=== PATIENT | female | born 1940 | race Caucasian/White ===

== ENCOUNTER 2020-04-01 11:47 | Inpatient (IN) | payer MEDICARE ==
[~2020-04-01] VITALS: Ht 157.5 cm; Wt 56.1 kg
--- NOTE | ~2020-04-01 | EMS ---
[place] [address] EMS Patient Care Report Name: DEREK BERNSTEIN Room: [facility]#: [id number] Admission: 04/01/20 Attend Phys: Discharge: Date of : 44 Report #: [id number] THIS REPORT FOR: //name// Report Transmitted: 04/01/2020 12:11 EMS Care Summary [facility] Incident [id number] @ 04/01/2020 10:30 Incident Location [address] [place] [address] Patient DEREK BERNSTEIN Female, 80 Years 1940 Patient Address [address] [place] [address] Patient History Stroke/CVA,Hyperlipidemia,Lupus, Patient Allergies No known allergies, Patient Medications Carvedilol, Benazepril, Spironolactone, Methotrexate, ASA, Atorvastatin, Paroxetine, Chief Complaint Generalized weakness Disposition Transported No Lights/[place] Dispatch Reason Unconscious/Fainting Transported To [facility] Narrative Dispatch: [facility] was dispatched for a female patient who is unresponsive but breathing. Med 1 copied tones and [place] [address] EMS Patient Care Report Name: DEREK BERNSTEIN Room: [facility]#: [id number] Admission: 04/01/20 Attend Phys: Discharge: Date of : 44 Report #: [id number] Chief Complaint: Med 1 arrived on scene to find the patient lying supine on the floor. Patient is alert and does not appear to be in any distress or discomfort. Patient states she was walking out of her bathroom when she felt dizzy and weak. Patient states she has a history of stroke. Negative [place] and MEND exam. Orthostatic hypotension is present. History of present illness/LIV: Patient states she walked into her living room from her bathroom and felt dizzy and weak. Patient called out for her daughter and passed out, per daughter. Patient regained consciousness prior to EMS arrival. Patient has a history of stroke. Assessment: Airway: Clear, patent, and self maintained. Breathing: Clear, and equal bilaterally. Non labored. Circulation: Skin is pink, warm, and dry. Disability: A&OX4, GCS 15. Exposures: No life threats were found. See "assessments" tab for further. Reason for ambulance: Patient was found unresponsive by daughter. Requesting EMS treatment and transport to [facility]. Treatments: ALS assessment. 12 lead EKG showing normal sinus rhythm. 20G IV established. 100ML LR. 4mg IV Zofran. Vitals monitored throughout transport. See "flowchart" for further. Summary: With the assistance of EMS, the patient was placed onto the cot, secured in place, and placed into the ambulance for transport. An IV was established, and Zofran was given. Med 1 went en route non emergent to [facility]. The patient had vomitted approx. 10CC of emesis. It was dark in color, coffee ground emesis not present. The patient's overall condition improved throughout transport. The patient stated she "felt a lot better." Radio report was given and no further questions or orders were received. Med 1 arrived at destination and the patient was taken to room 4 in the ED where she was sheet transferred onto the bed. Report was given and signatures and paperwork were received. Med 1 returned back in service. Initial Vitals @11:06P: 80,BP: 122/64, @11:21P: 70,BP: 107/50, @11:13P: 71,AK Suspected: false @10:49MI Suspected: false @10:50P: 86,BP: 100/48,AK Suspected: false @11:01BP: 130/62,AK Suspected: false @10:37P: 88,R: 18,BP: 110/82,GCS: 15,Glucose: 131,SpO2: 99,Revised Trauma: 12, @10:48P: 89,SpO2: 100,AK Suspected: [place] [address] EMS Patient Care Report Name: DAYVASQUEZDEREK S Room: [facility]#: [id number] Admission: 04/01/20 Attend Phys: Discharge: Date of : 44 Report #: [id number] @10:54BP: 66/44, @11:36BP: 122/51, @11:43BP: 121/53, @11:33P: 70,BP: 124/50, @11:26P: 83, Assessments @10:37MENTAL:Confused,Time Oriented,Person Oriented,Event Oriented,Place Oriented,SKIN:HEENT:LUNG SOUNDS:ABDOMEN:PELVIS//GI:EXTREMITIES:Capillary Refill: Right Upper: < 2 Sec,PULSE:Radial: 2+ Normal,NEURO:@11:15MENTAL:Person Oriented,Time Oriented,Place Oriented,Event Oriented,SKIN:HEENT:LUNG SOUNDS:ABDOMEN:PELVIS//GI:EXTREMITIES:Capillary Refill: Right Upper: < 2 Sec,PULSE:Radial: 2+ Normal,NEURO: Impression Orthostatic Hypotension Procedures @10:37ALS AssessmentResponse: UnchangedSucceeded@10:50Saline Lock 0cc (20 ga) Site: Forearm-RightResponse: UnchangedSucceeded@10:52Saline Lock 0cc (20 ga) Site: Antecubital-RightResponse: UnchangedFailed@10:53Zofran - 4 Milligrams (mg) - Intravenous (IV)Response: Improved@11:10Lactated Ringers 100cc () Site: Forearm-RightResponse: UnchangedSucceeded@11:1312-Lead ECGResponse: UnchangedSucceeded@11:0112-Lead ECGResponse: UnchangedSucceeded@10:4912-Lead ECGResponse: UnchangedSucceeded@10:5012-Lead ECGResponse: UnchangedSucceeded Timeline 10:29,Call Received 10:30,Dispatched 10:31,En Route 10:35,On Scene 10:36,At Patient 10:37,ALS Assessment,Response: UnchangedSucceeded, 10:37,BP: 110/82 M,PULSE: 88,RR: 18 R,SPO2: 99 Ox,ETCO2: ,B,PAIN: ,GCS: 15, 10:48,BP: / M,PULSE: 89,RR: R,SPO2: 100 Ox,ETCO2: ,BG: ,PAIN: ,GCS: , 10:49,12-Lead ECG,Response: UnchangedSucceeded, 10:49,BP: / M,PULSE: ,RR: R,SPO2: Ox,ETCO2: ,BG: ,PAIN: ,GCS: , 10:50,Saline Lock 0cc 20 ga Site: Forearm-Right,Response: UnchangedSucceeded, 10:50,12-Lead ECG,Response: UnchangedSucceeded, 10:50,BP: 100/48 M,PULSE: 86,RR: R,SPO2: Ox,ETCO2: ,BG: ,PAIN: ,GCS: , 10:52,Saline Lock 0cc 20 ga Site: Antecubital-Right,Response: UnchangedFailed, 10:53,Zofran - 4 Milligrams (mg) - Intravenous (IV),Response: Improved 10:54,BP: 66/44 M,PULSE: ,RR: R,SPO2: Ox,ETCO2: ,BG: ,PAIN: ,GCS: , 11:01,12-Lead ECG,Response: UnchangedSucceeded, 11:01,BP: 130/62 M,PULSE: ,RR: R,SPO2: Ox,ETCO2: ,BG: ,PAIN: ,GCS: , [place] [address] EMS Patient Care Report Name: DAYDEREK S Room: [facility]#: [id number] Admission: 04/01/20 Attend Phys: Discharge: Date of : 44 Report #: [id number] 11:06,BP: 122/64 M,PULSE: 80,RR: R,SPO2: Ox,ETCO2: ,BG: ,PAIN: ,GCS: , 11:10,Lactated Ringers 100cc Site: Forearm-Right,Response: UnchangedSucceeded, 11:10,Depart Scene 11:13,12-Lead ECG,Response: UnchangedSucceeded, 11:13,BP: / M,PULSE: 71,RR: R,SPO2: Ox,ETCO2: ,BG: ,PAIN: ,GCS: , 11:21,BP: 107/50 M,PULSE: 70,RR: R,SPO2: Ox,ETCO2: ,BG: ,PAIN: ,GCS: , 11:26,BP: / M,PULSE: 83,RR: R,SPO2: Ox,ETCO2: ,BG: ,PAIN: ,GCS: , 11:33,BP: 124/50 M,PULSE: 70,RR: R,SPO2: Ox,ETCO2: ,BG: ,PAIN: ,GCS: , 11:36,BP: 122/51 M,PULSE: ,RR: R,SPO2: Ox,ETCO2: ,BG: ,PAIN: ,GCS: , 11:43,BP: 121/53 M,PULSE: ,RR: R,SPO2: Ox,ETCO2: ,BG: ,PAIN: ,GCS: , 11:44,At Destination 12:28,Call Closed Disclaimer v1.1 Copyright 2020 [employer]. This EMS Care Summary contains data elements from the applicable legal record (which may be displayed differently). It is designed to provide pertinent information for the following purposes: continuity of care, clinical quality, and state data reporting. The complete legal record is available to ED staff and administrators of the receiving hospital in [employer] Patient Tracker. All data is provided "as is."
--- NOTE | ~2020-04-01 | PROC ---
[address] [address] PROCEDURE REPORT Name: DEREK BERNSTEIN Room: [address] IN M.R.#: [id number] Admission: 04/01/20 Attend Phys: Alecia Cowart Discharge: 04/04/20 Date of : 44 Report #: [id number] THIS REPORT FOR: cc: [facility] - Clinic physician unknown [facility] - Clinic physician unknown ~ [facility],Medical Records Staff For GI report, please see the Provation report in Perceptive 7 content. By: 1455Medical Records Staff [facility] /LYNNETTE
--- NOTE | ~2020-04-01 | PROC ---
[address] [address] PROCEDURE REPORT Name: DEREK BERNSTEIN Room: [address] IN M.R.#: [id number] Admission: 04/01/20 Attend Phys: Alecia Cowart Discharge: 04/04/20 Date of : 44 Report #: [id number] THIS REPORT FOR: cc: [facility] - Clinic physician unknown [facility] - Clinic physician unknown ~ [facility],Medical Records Staff For GI report, please see the Provation report in Perceptive 7 content. By: 1451Medical Records Staff [facility] /[place]NN[place]
[2020-04-01 11:53] VITALS: BP 124/54
[2020-04-01] MEDS ORDERED: LIPITOR10 MG PO (11:59)
[2020-04-01] MEDS ORDERED: COREG6.25 MG PO (11:59)
[2020-04-01] MEDS ORDERED: PAROXETINE HCL40 MG PO (11:59)
[2020-04-01] MEDS ORDERED: SPIRONOLACTONE25 MG PO (11:59)
[2020-04-01] MEDS ORDERED: LOTENSIN20 MG PO (11:59)
[2020-04-01] MEDS ORDERED: METHOTREXATE 22.5 M1 PO (12:00)
[2020-04-01] MEDS ORDERED: LOW DOSE ASPIRI81 M1 PO (12:00)
[2020-04-01 12:22] LABS: CALCIUM 8.6 mg/dL (8.5-10.1); POTASSIUM 5.1 mmol/L (3.5-5.1)
[2020-04-01 12:27] LABS: ALBUMIN 3.2 g/dL (3.4-5.0); TOTAL BILIRUBIN 0.5 mg/dL (<0.1-1.0); TOTAL PROTEIN 6.6 g/dL (6.4-8.2)
[2020-04-01 12:37] LABS: ABSOLUTE MONOCYTES 0.4 thou/uL (0.0-1.2); ABSOLUTE NEUTROPHILS 4.5 thou/uL (1.6-8.1); BASOPHILS 0.5 %; EOSINOPHILS 0.8 %; HEMATOCRIT 32.6 % (37.0-47.0); HEMOGLOBIN 10.7 gm/dL (12.0-15.0); LYMPHOCYTES 16.2 %; MCH 34.9 pg (26.0-34.0); MCHC 32.6 g/dL (28.0-37.0); MCV 106.9 fL (80.0-100.0); MONOCYTES 6.7 %; NUCLEATED RBCS 0 /100WBC; PLATELET COUNT* 194 thou/uL (150-400); POLYS 75.8 %; RBC 3.05 mil/uL (4.20-5.00); RDW-CV 16.3 % (10.5-14.5); WBC 5.9 thou/uL (4.0-11.0)
--- NOTE | 2020-04-01 14:42 | EKG ---
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
[2020-04-01 15:04] LABS: URINE BILIRUBIN NEGATIVE (Negative); URINE BLOOD 3+ (Negative); URINE COLOR YELLOW; URINE GLUCOSE-RANDOM NEGATIVE (Negative); URINE KETONES NEGATIVE (Negative); URINE LEUKOCYTES-REFLEX NEGATIVE (Negative); URINE NITRITE-REFLEX NEGATIVE (Negative); URINE PROTEIN NEGATIVE (Negative); URINE UROBILINOGEN 0.2 E.U./dl (0.2-1.0)
[2020-04-01 15:05] LABS: URINE CLARITY HAZY
[2020-04-01 15:20] LABS: BACTERIA-REFLEX 1-9 Few /HPF (None Seen); CASTS None Seen /LPF (None Seen); CRYSTALS None Seen /LPF (None Seen); SQUAMOUS 0-3 Few /LPF (0-3); URINE RBC 0-2 Rare /HPF (0-2); URINE WBC-REFLEX 0-5 Rare /HPF (0-5)
[2020-04-01 16:17] VITALS: BP 100/47
[2020-04-01 19:38] VITALS: BP 102/49
[2020-04-01 21:00] VITALS: BP 131/53
[2020-04-02] VITALS: BP 112/51
[2020-04-02 04:42] VITALS: BP 95/53
--- NOTE | 2020-04-02 05:10 | NUR ---
No acute event this shift. Pt denies pain. No noted bleeding overnight. Pt VS stable. IVF and PPI infusing as ordered. Assessment as charted. Call light within reach, safety precaution in placed.
[2020-04-02 08:00] VITALS: BP 116/50
[2020-04-02 09:25] LABS: ABSOLUTE LYMPHOCYTES 1.1 thou/uL (0.8-5.3); ABSOLUTE MONOCYTES 0.3 thou/uL (0.0-1.2); BASOPHILS 0.7 %; EOSINOPHILS 0.7 %; HEMATOCRIT 23.2 % (37.0-47.0); LYMPHOCYTES 31.2 %; MCH 35.2 pg (26.0-34.0); MCHC 33.3 g/dL (28.0-37.0); MONOCYTES 9.3 %; MPV 7.3 fl. (7.2-11.1); NUCLEATED RBCS 0 /100WBC; PLATELET COUNT* 131 thou/uL (150-400); POLYS 58.1 %; RBC 2.19 mil/uL (4.20-5.00); RDW-CV 16.3 % (10.5-14.5); WBC 3.5 thou/uL (4.0-11.0)
[2020-04-02 09:28] LABS: HEMOGLOBIN 7.7 gm/dL (12.0-15.0)
[2020-04-02 09:31] LABS: CALCIUM 7.6 mg/dL (8.5-10.1); CREATININE 0.8 mg/dL (0.6-1.3); POTASSIUM 4.1 mmol/L (3.5-5.1)
[2020-04-02 09:36] LABS: PROTIME 10.9 Seconds (9.20-11.50)
[2020-04-02 12:00] VITALS: BP 103/50
--- NOTE | 2020-04-02 12:43 | EKG ---
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
--- NOTE | 2020-04-02 16:09 | NUR ---
CM SPOKE TO THE PT TO DICSS CM ASSESSMENT. PT A&O, INDEPENDENT WITH ADL'S, ACTIVE AND DRIVES. PT RESIDES AT HOME ALONE. PT INFOMRS THAT HER DTR IS ABLE TO ASSIST HER IF SHE EVER NEEDED IT. PT USES 0 DME. PT HAS 0 HE OF HH OR SNF. CM WILL REMAIN AVAILABLE TO ASSIST AND FOLLOW NEEDED.
--- NOTE | 2020-04-02 20:30 | NUR ---
ASSUMED CARE OF PATIENT THIS AM AT 0730. PATIENT IS ALERT AND ORIENTED X 4. SHE DENIES PAIN AND DISCOMFORT. TELE SHOWS SR WITH PACS. PATIENT KEPT NPO THIS AM FOR GI. DR MATIAS IN TO SEE PATIENT AND ORDERS WRITTEN FOR AN EGD. CONSENT SIGNED BY PATIENT AND PATIENT WAS LATER TAKEN TO PACU FOR PROCEDURE PER W/C. RESOURCE NURSE INTERPERTED MONITOR STRIP A FIB. DR METZ NOTIFIED. CARDIOLOGY CONSULT ORDERED. EKG DONE. PATIENT WAS FOUND TO STILL BE IN SR. PATIENT DID NOT NEED A CONSULT AND CONSULT WAS CANCELLED. IV FLUIDS AND PROTONIX GTT INFUSING PRE AND POST EGD. PATIENT IS RESTING AT THIS TIME. SHE TOLERATED FULL LIQUID DIET WELL. NO FALLS OR INJURY. CALL LIGHT IS IN REACH.
[2020-04-02 23:54] VITALS: BP 111/46
[2020-04-03 04:00] VITALS: BP 125/56
[2020-04-03 04:19] LABS: ABSOLUTE EOSINOPHILS 0.1 thou/uL (0.0-0.7); ABSOLUTE LYMPHOCYTES 1.1 thou/uL (0.8-5.3); ABSOLUTE MONOCYTES 0.5 thou/uL (0.0-1.2); ABSOLUTE NEUTROPHILS 3.7 thou/uL (1.6-8.1); BASOPHILS 0.2 %; HEMATOCRIT 22.5 % (37.0-47.0); HEMOGLOBIN 7.6 gm/dL (12.0-15.0); LYMPHOCYTES 20.3 %; MCH 35.5 pg (26.0-34.0); MCV 104.4 fL (80.0-100.0); MONOCYTES 8.7 %; MPV 7.9 fl. (7.2-11.1); NUCLEATED RBCS 0 /100WBC; PLATELET COUNT* 117 thou/uL (150-400); POLYS 69.8 %; RBC 2.15 mil/uL (4.20-5.00); RDW-CV 15.8 % (10.5-14.5); WBC 5.4 thou/uL (4.0-11.0)
[2020-04-03 04:31] LABS: CALCIUM 7.9 mg/dL (8.5-10.1); CREATININE 0.7 mg/dL (0.6-1.3)
--- NOTE | 2020-04-03 07:04 | NUR ---
ASSUMED PT'S CARE BEGINNING OF PM SHIFT. PT ALERT AND ORIENTED. FORGETFUL. PT SLEPT WELL THIS SHIFT. MEDS GIVEN PER EMAR. FALL PRECAUTION IN PLACE. PT VOIDED VIA BSC. CALL LIGHT WITHIN REACH. WILL CONTINUE TO MONITOR.
[2020-04-03 12:17] VITALS: BP 129/51
--- NOTE | 2020-04-03 16:01 | NUR ---
ASSUMED CARE OF PATIENT THIS AM AT 0730. PATIENT IS ALERT AND ORIENTED X 4. SHE DENIES PAIN AND DISCOMFORT. BOWEL PREP STARTED. PATIENT ASSISTED UP TO THE BATHROOM X 3 SO FAR. TELE SHOWS SR WITH A BBB. SHE DENIES PAIN AND DISCOMFORT. STOOLS ARE BROWN IN COLOR. WILL CONTINUE TO MONITOR. NO FALLS OR INJURY.
[2020-04-03 16:14] VITALS: BP 156/60
[2020-04-03 20:00] VITALS: BP 99/76
[2020-04-04 00:32] VITALS: BP 1218/59
[2020-04-04 04:04] LABS: ABSOLUTE EOSINOPHILS 0.2 thou/uL (0.0-0.7); ABSOLUTE LYMPHOCYTES 1.2 thou/uL (0.8-5.3); ABSOLUTE MONOCYTES 0.5 thou/uL (0.0-1.2); BASOPHILS 0.8 %; EOSINOPHILS 3.4 %; HEMATOCRIT 24.1 % (37.0-47.0); HEMOGLOBIN 8.2 gm/dL (12.0-15.0); LYMPHOCYTES 24.9 %; MCH 35.8 pg (26.0-34.0); MCHC 33.9 g/dL (28.0-37.0); MCV 105.4 fL (80.0-100.0); MONOCYTES 10.9 %; MPV 8.4 fl. (7.2-11.1); NUCLEATED RBCS 0 /100WBC; PLATELET COUNT* 118 thou/uL (150-400); RBC 2.28 mil/uL (4.20-5.00); RDW-CV 16.5 % (10.5-14.5); WBC 4.9 thou/uL (4.0-11.0)
[2020-04-04 04:21] LABS: CALCIUM 8.1 mg/dL (8.5-10.1); CREATININE 0.8 mg/dL (0.6-1.3); POTASSIUM 3.5 mmol/L (3.5-5.1)
[2020-04-04 04:48] VITALS: BP 129/58
--- NOTE | 2020-04-04 06:03 | NUR ---
ASSUMED PT'S CARE AT ABOUT 1900. ALERT AND ORIENTED. VSS ON RA. PT SLEPT OFF AND ON. BOWEL PREP. BM CLEARED UP. PT UP STB TO EITHER BATHRROM OR BSC. DID FEW EPISODES OF BOWEL INCONTINENCE. DTR MAGDIEL CALLED FOR UPDATE, DTR TO VISIT PT TODAY. FALL PRECAUTION IN PLACE. PROTONIX DRIP AND IVF. CALL LIGHT WITHIN REACH. HOURY ROUNDINGS MADE. WILL CONTINUE TO MONITOR.
[2020-04-04 08:00] VITALS: BP 142/76
--- NOTE | 2020-04-04 13:11 | NUR ---
Pt to have a colonoscopy today, plan dc to home tomorrow.
[2020-04-04] MEDS ORDERED: FERREX 150150 MG PO (14:22)
[2020-04-04] MEDS ORDERED: PROTONIX40 M2 PO (14:22)
[2020-04-04] MEDS ORDERED: FOLIC ACID1 MG PO (14:22)
[2020-04-04 14:55] VITALS: BP 142/76
--- NOTE | 2020-04-04 18:22 | NUR ---
RECEIVED REPORT AROUND 0715. ASSUMED CARE. IV INTACT. HEART MONITOR ATTACHED AT SR WITH BBB. BOWEL PREP THROUGHOUT NIGHT. COLONOSCOPY THIS AM. IF DIET TOLERATED, DR SHARI KOHLER WITH DC. DISCHARGE ORDERS RECEIVED. PACKET GONE OVER WITH PT AND DAUGHTER. COMMUNICATED UNDERSTANDING. IV TAKEN OUT. HEART MONITOR OFF. PT LEFT UNIT AT 1512 VIA WHEELCHAIR WITH NURSING STAFF.
--- NOTE | 2020-04-05 16:06 | PATH ---
[address] [address] PATHOLOGY RPT PROCEDURE Name: ARGELIA BERNSTEIN Room: [address] IN M.R.#: [id number] Admission: 04/01/20 Date of : 44 Discharge: 04/04/20 Report #: [id number] Path Case #: [id number] [facility] Accession Number: [id number] . 01 Material submitted: . PART A: gastrointestinal site - ANTRAL BIOPSY R/O H. PYLORI PART B: duodenum - ABNORMAL DUODENAL MUCOSA . 01 Clinical history: . GI BLEED, ANEMIA, SYNCOPE . 02 Diagnosis: A. 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 . B. Abnormal duodenal mucosa (scalloped duodenal fold): - Normal duodenal mucosa. (TODD:pit 04/05/2020) . Special stain on A: H. pylori immuno QTP 04/05/2020 1353 Local . 02 Electronically signed: . Ronaldo Kowalski MD, Pathologist NPI- [id number] . 01 Gross description: . A. The specimen is received in formalin, labeled "Argelia Bernstein, antral biopsy, R/O H. pylori". Received are two segments of pale gabriel soft tissue ranging in size from 0.3 to 0.4 cm in maximum dimensions. The specimen is submitted entirely in cassette A1. . B. The specimen is received in formalin, labeled "Argelia Long, abnormal duodenal mucosa, scalloped duodenal fold". Received are two segments of pale gabriel soft tissue ranging in size from 0.3 to 0.5 cm in maximum dimensions. The specimen is submitted entirely in cassette B1. (CAA; 04/04/2020) QAC/QAC 04/04/2020 1655 Local . 02 Pathologist provided ICD-10: K29.50, K92.2, D64.9, R55 . 02 CPT . 201361, 829339, W66175 Specimen Comment: A courtesy copy of this report has been sent to [phone], [place] [address] PATHOLOGY RPT PROCEDURE Name: ARGELIA BERNSTEIN Room: [address] IN [facility].#: [id number] Admission: 04/01/20 Date of : 44 Discharge: 04/04/20 Report #: [id number] Path Case #: [id number] Specimen Comment: [id number], Specimen Comment: Report sent to ,DR DUFF / [facility] Performed at: [address] [facility] [address], [place], [place] [id number] MD Alejandro Keane MD Phone: [phone] Performed at: [address] [facility] [address] [place], [place] [id number] MD Ronaldo Kowalski MD Phone: [phone]
--- NOTE | 2020-04-06 19:29 | CON ---
[address] [address] CONSULTATION Name: DAYDEREK S Room: [address] IN M.R.#: [id number] Admission: 04/01/20 Attend Phys: Alecia Cowart Discharge: 04/04/20 Date of : 44 Report #: [id number] THIS REPORT FOR: cc: [facility] - Clinic physician unknown [facility] - Clinic physician unknown ~ Mac Rowe DO DATE OF SERVICE: 04/02/2020 REFERRING PHYSICIAN: [facility] REASON FOR CONSULTATION: Melena. IMPRESSION: 1. Melena with associated acute anemia -- evaluate for upper gastrointestinal tract versus lower gastrointestinal tract, causes for the same. 2. History of recurrent epistaxis contributing to #1. 3. Lupus by history with the patient being on chronic methotrexate -- the patient avoids all nonsteroidals. 4. Orthostatic hypotension with associated anemia. RECOMMENDATIONS: 1. The patient has had a significant drop in her blood count from 10.9-7.7 low. This is related to hydration and to reequilibration. Because of elevated BUN to creatinine ratio, I have recommended that we will proceed with upper endoscopy today. I have discussed the plans with the patient as well as her daughter and they are agreeable to the same. 2. Further recommendation will be made thereafter. HISTORY OF PRESENT ILLNESS: The patient is a very pleasant 80-year-old white female with history of lupus who presented to the emergency room with complaints of lightheadedness and dizziness and dark stools, which was ongoing for the last day or two. She has a history of recurrent epistaxis, never been evaluated by ENT for the same. She denies any complaints of any dysphagia, odynophagia, chronic reflux or indigestion. She states she does not take any nonsteroidals whatsoever and grilled her about all aylu-llz-macmgcj medications and prescription medications for the same. She does take Tylenol only. She denies any complaints of any postprandial pain or any problem with her bowels or bowel frequency, though she has tendency towards constipation. She started having some dark stools over the last couple of days and was lightheaded and dizzy and found to have orthostatic hypotension on admission. She is admitted to the hospital for further evaluation and treatment. ALLERGIES: [place] [address] CONSULTATION Name: DEREK BERNSTEIN Room: [address]#: [id number] Admission: 04/01/20 Attend Phys: Alecia Cowart Discharge: 04/04/20 Date of : 44 Report #: [id number] MEDICATIONS: At home include spironolactone, atorvastatin, carvedilol, paroxetine , Lotensin, methotrexate and low-dose aspirin. PAST MEDICAL HISTORY: Hypertension, hyperlipidemia, some problems with anxiety and depression, history of lupus or some type of rheumatologic issue. She states she has had previous upper and lower endoscopy, which she cannot remember where they were done and what was found. SOCIAL HISTORY: The patient does not smoke, occasionally drinks alcohol. FAMILY HISTORY: Negative. PHYSICAL EXAMINATION: GENERAL: Pleasant, 80-year-old white female who is pale. CARDIOPULMONARY: Revealed a regular rate and rhythm. LUNGS: Clear. ABDOMEN: Soft and not tender. No rebound or guarding noted. LABORATORY DATA: From admission revealed a white count of 5.9; hemoglobin 10.7; platelet count 194,000; MCV is 106.9 and RDW of 16.3. Sodium 129, potassium 5.1, chloride 98, bicarbonate 22, BUN 29, creatinine 1.04. With a GFR of 54. Total bilirubin 0.5, alkaline phosphatase 86, AST 44, ALT 49, albumin is 3.2. With hydration, her hemoglobin has come down to 7.7 from 10.7 yesterday. White count is low at 3.5, and platelet count low at 131. Sodium 133, potassium 4.1, chloride 104, bicarb 21, BUN is 16, creatinine 0.8. GFR is 69. CT scan of the abdomen and pelvis was performed and revealed normal appearing liver and spleen. She has postsurgical change compared to previous cholecystectomy. The pancreas and adrenal glands appeared normal. She has history of kidney stones as well. There was no abnormality noted on CT scan. DISCUSSION: At the present time, the patient has had some problems with melena and anemia. We will proceed with upper endoscopy today and make further recommendations thereafter. I have discussed the plans with the patient as well as her family and they are agreeable to the same. <ELECTRONICALLY SIGNED> By: Mac Rowe DO 04/06/20 1929 1323 1544Mac Rowe DO /nt
== END 2020-04-04 15:08 | disposition home or self-care (01) | DRG 378 ==
LOC: M.ERS 11:47 → M.TBA-ER 13:09 → M.2W 13:09
PROVIDERS: Family Medicine; Internal Medicine Gastroenterology; ADMIT Internal Medicine; ATTEND Internal Medicine
PROC: 0DB98ZX Excision of Duodenum, Via Natural or Artificial Opening Endoscopic, Diagnostic (ICD-10-PCS; principal; 2020-04-02)
PROC: 0DJD8ZZ Inspection of Lower Intestinal Tract, Via Natural or Artificial Opening Endoscopic (ICD-10-PCS; 2020-04-04)
PROC: 0DB68ZX Excision of Stomach, Via Natural or Artificial Opening Endoscopic, Diagnostic (ICD-10-PCS; 2020-04-04)
DX: K27.4 Chronic or unspecified peptic ulcer, site unspecified, with hemorrhage (principal); D62 Acute posthemorrhagic anemia; E87.1 Hypo-osmolality and hyponatremia; I10 Essential (primary) hypertension; N20.0 Calculus of kidney; K57.11 Diverticulosis of small intestine without perforation or abscess with bleeding; E78.00 Pure hypercholesterolemia, unspecified; I95.1 Orthostatic hypotension; K57.30 Diverticulosis of large intestine without perforation or abscess without bleeding; K44.9 Diaphragmatic hernia without obstruction or gangrene; K31.89 Other diseases of stomach and duodenum; K31.811 Angiodysplasia of stomach and duodenum with bleeding; R63.4 Abnormal weight loss; Z20.822 Contact with and (suspected) exposure to COVID-19; Z90.49 Acquired absence of other specified parts of digestive tract; Z86.73 Personal history of transient ischemic attack (TIA), and cerebral infarction without residual deficits; Z79.82 Long term (current) use of aspirin; Z79.899 Other long term (current) drug therapy; Z88.8 Allergy status to other drugs, medicaments and biological substances; Z68.22 Body mass index [BMI] 22.0-22.9, adult